=== PATIENT | male | born 1950 | race Caucasian/White ===

== ENCOUNTER 2018-11-10 07:07 | Inpatient (IN) | payer MEDICARE ==
[~2018-11-10] VITALS: Ht 177.8 cm; Wt 81.2 kg
[~2018-11-10 07:07] MED LIST changes: -GADOBUTROL 10 MMOL/10 ML PFS ONE; -OXYC-432 PO
[2018-11-10 07:42] VITALS: BP 129/84
[2018-11-10] MEDS ORDERED: BUPIVACAINE/PF-EPI 0.5% 1:200K ONE (07:54)
[2018-11-10] MEDS ORDERED: HYDROCORTISONE 100 MG INJ. ONE (07:54)
[2018-11-10] MEDS ORDERED: BACITRACIN OINT 500U/GM, 15 GM ONE (07:54)
[2018-11-10] MEDS ORDERED: CEFUROXIME 1.5 GM ONE (07:54)
[2018-11-10] MEDS ORDERED: THROMBIN 5,000 UNIT VIAL TP ONE (07:54)
[2018-11-10] MEDS ORDERED: BACITRACIN 50,000 UNIT ONE (07:54)
[2018-11-10] MEDS: LACTATED RINGERS 1,000 ML IV SCH ×2 (08:08→20:01)
[2018-11-10] MEDS ORDERED: ACETAMINOPHEN 500 MG TABLET ONE (09:31)
[2018-11-10] MEDS ORDERED: ACETAMINOPHEN 500 MG TABLET PO ONE (10:00)
[2018-11-10] MEDS ORDERED: FENTANYL PF 250 MCG/5ML ONE ×3 (10:22→15:15)
[2018-11-10] MEDS ORDERED: MIDAZOLAM 1 MG/ML, 2ML ONE (10:22)
[2018-11-10] MEDS ORDERED: LIDOCAINE 4%, 4 ML SYR/CANN TP ONE (12:46)
[2018-11-10] MEDS ORDERED: PROPOFOL 10 MG/ML, 20ML ONE ×2 (12:46)
[2018-11-10] MEDS ORDERED: DEXAMETHASONE 4 MG/ML, 5ML ONE (12:46)
[2018-11-10] MEDS ORDERED: ONDANSETRON 2MG/ML, 2ML ONE ×2 (12:46)
[2018-11-10] MEDS ORDERED: ROCURONIUM 10 MG/ML,10ML ONE (12:46)
[2018-11-10] MEDS ORDERED: SUCCINYLCHOLINE 20 MG/ML, 10ML ONE (12:46)
[2018-11-10] MEDS ORDERED: LABETALOL 20 MG/4 ML ONE (12:46)
[2018-11-10] MEDS ORDERED: morphine SULFATE 10 MG/ML, 1ML IV PRN (13:00)
[2018-11-10] MEDS ORDERED: ONDANSETRON 2MG/ML, 2ML IV PRN ×2 (13:00→14:00)
[2018-11-10] MEDS ORDERED: DEXAMETHASONE 4 MG/ML, 5ML IV SCH (13:00)
[2018-11-10] MEDS: CEFAZOLIN PMX 1GM/50ML 50 ML IVPB SCH ×2 (13:00→21:23)
[2018-11-10] MEDS ORDERED: LABETALOL 5MG/ML, 20ML IV PRN (14:00)
[2018-11-10] MEDS ORDERED: FENTANYL PF 100 MCG/2ML IV PRN (14:00)
[2018-11-10] MEDS ORDERED: PROMETHAZINE 25 MG/ML, 1ML IV PRN (14:00)
[2018-11-10] MEDS ORDERED: ALBUTEROL/IPRATROPIUM 2.5MG/0.5MG, 3 ML NPPB PRN (14:00)
[2018-11-10] MEDS ORDERED: OXYcodone 5 MG/5 ML ORAL.SOL UDC PO PRN (14:00)
[2018-11-10] MEDS ORDERED: HALOPERIDOL 5 MG/ML IV PRN (14:00)
[2018-11-10] MEDS ORDERED: DIAZEPAM 5 MG/ML, 2ML IVPush PRN (14:00)
[2018-11-10] MEDS ORDERED: ONDANSETRON ODT 8 MG PO PRN (14:00)
[2018-11-10] MEDS ORDERED: SUGAMMADEX 200 MG/2 ML IVPush ONE (16:12)
[2018-11-10] MEDS ORDERED: HYDROmorphone 2 MG/ML, 1ML ONE (17:36)
[2018-11-10] MEDS: HYDROmorphone 2 MG/ML, 1ML IVPush PRN ×3 (17:38→18:13)
[2018-11-10] MEDS ORDERED: hydrALAzine 20 MG/ML, 1ML ONE (18:00)
[2018-11-10] MEDS: hydrALAzine 20 MG/ML, 1ML IV PRN ×2 (18:01→18:21)
[2018-11-10] MEDS ORDERED: morphine SULFATE 10 MG/ML, 1ML ONE (18:05)
[2018-11-10] MEDS ORDERED: MORPHINE SULFATE 4 MG/ML, 1ML IVPush PRN (18:30)
[2018-11-10] MEDS ORDERED: LABETALOL 5MG/ML, 20ML IVPush PRN (19:00)
[2018-11-10] MEDS ORDERED: hydrALAzine 20 MG/ML, 1ML IV PRN (19:00)
[2018-11-10] MEDS ORDERED: ENALAPRILAT 1.25 MG/ML, 2ML IV PRN (19:00)
[2018-11-10] MEDS: DEXAMETHASONE 4 MG TABLET PO SCH (21:26)
[2018-11-11] MEDS: OXYcodone/APAP 5/325MG TABLET PO PRN ×3 (03:23→20:17)
[2018-11-11] MEDS: DEXAMETHASONE 4 MG TABLET PO SCH ×3 (04:33→20:11)
[2018-11-11 04:49] LABS: ANION GAP 10 mmol/L (5-15); CALCIUM 8.6 mg/dL (8.5-10.1); CHLORIDE 103 mmol/L (98-107); CREATININE 1.31 mg/dL (0.7-1.3)
[2018-11-11] MEDS: LISINOPRIL 20 MG TABLET PO SCH (09:03)
[2018-11-11] MEDS: MULTIVITAMINS/MINERALS TABLET PO SCH (09:03)
[2018-11-11] MEDS: CARVEDILOL 3.125 MG TABLET PO SCH ×2 (09:03→18:08)
[2018-11-11 10:19] LABS: BASOPHILS # (AUTO) 0.05 x10^3/uL (0-0.1); BASOPHILS % (AUTO) 1 % (0-1); EOSINOPHILS % (AUTO) 0 % (1-7); LYMPHOCYTES # (AUTO) 0.25 x10^3/uL (1-3.4); LYMPHOCYTES % (AUTO) 2 % (22-44); MD NO; MEAN CORPUSCULAR HEMOGLOBIN 31.5 pg (27.5-34.5); MEAN CORPUSCULAR HGB CONC 34.5 g/dL (33.2-36.2); MEAN CORPUSCULAR VOLUME 91.4 fL (81-97); MEAN PLATELET VOLUME 6.9 fL (7.4-10.4); MONOCYTES # (AUTO) 0.41 x10^3/uL (0.2-0.8); MONOCYTES % (AUTO) 4 % (2-9); NEUTROPHILS # (AUTO) 10.13 x10^3/uL (1.8-6.8); NEUTROPHILS % (AUTO) 93 % (42-75); PLATELET COUNT 142 x10^3/uL (130-400); RED BLOOD COUNT 3.84 x10^6/uL (4.38-5.82); RED CELL DISTRIBUTION WIDTH 15.2 % (9.4-14.8)
[2018-11-11 10:28] LABS: ALBUMIN 2.6 g/dL (3.4-5.0); ANION GAP 8 mmol/L (5-15); CALCIUM 8.9 mg/dL (8.5-10.1); CHLORIDE 101 mmol/L (98-107)
[2018-11-11 10:31] LABS: ALANINE AMINOTRANSFERASE 48 U/L (12-78); ALKALINE PHOSPHATASE 75 U/L (45-117); BILIRUBIN,TOTAL 0.6 mg/dL (0.2-1.0); CREATININE 1.42 mg/dL (0.7-1.3); TOTAL PROTEIN 6.3 g/dL (6.4-8.2)
[2018-11-11 11:30] VITALS: BP 110/75
[2018-11-11 13:30] VITALS: BP 111/78
[2018-11-11 18:06] VITALS: BP 101/67
[2018-11-11 19:21] VITALS: BP 109/71
[2018-11-12 00:32] VITALS: BP 121/78
[2018-11-12] MEDS: CARVEDILOL 3.125 MG TABLET PO SCH ×2 (04:36→17:17)
[2018-11-12] MEDS: DEXAMETHASONE 4 MG TABLET PO SCH ×3 (04:36→20:51)
[2018-11-12 07:00] VITALS: BP 159/92
[2018-11-12] MEDS: MULTIVITAMINS/MINERALS TABLET PO SCH (09:03)
[2018-11-12] MEDS: LISINOPRIL 20 MG TABLET PO SCH (09:04)
[2018-11-12] MEDS: OXYcodone/APAP 5/325MG TABLET PO PRN ×2 (13:52→20:54)
[2018-11-12 13:55] VITALS: BP 123/78
[2018-11-12 19:06] VITALS: BP 114/76
[2018-11-13 03:46] VITALS: BP 133/84
[2018-11-13] MEDS: OXYcodone/APAP 5/325MG TABLET PO PRN (03:55)
[2018-11-13] MEDS: DEXAMETHASONE 4 MG TABLET PO SCH (04:30)
[2018-11-13] MEDS: CARVEDILOL 3.125 MG TABLET PO SCH (04:32)
[2018-11-13 08:14] VITALS: BP 115/74
[2018-11-13] MEDS: MULTIVITAMINS/MINERALS TABLET PO SCH (08:14)
[2018-11-13] MEDS: LISINOPRIL 20 MG TABLET PO SCH (08:14)
[2018-11-13] MEDS ORDERED: OXYC-432 PO (08:46)
== END 2018-11-13 11:13 | disposition home health service (06) | DRG 26 ==
LOC: ORIP 07:07 → CCU 18:17 → 3NW 11-11 11:26
PROVIDERS: ADMIT Neurological Surgery; ATTEND Family Medicine
PROC: 00U20KZ Supplement Dura Mater with Nonautologous Tissue Substitute, Open Approach (ICD-10-PCS; 2018-11-10)
PROC: 03HY32Z Insertion of Monitoring Device into Upper Artery, Percutaneous Approach (ICD-10-PCS; 2018-11-10)
PROC: 00B70ZZ Excision of Cerebral Hemisphere, Open Approach (ICD-10-PCS; principal; 2018-11-10 10:00)
DX: C79.31 Secondary malignant neoplasm of brain (principal); C34.90 Malignant neoplasm of unspecified part of unspecified bronchus or lung; Z85.528 Personal history of other malignant neoplasm of kidney; J44.9 Chronic obstructive pulmonary disease, unspecified; F41.9 Anxiety disorder, unspecified; I97.3 Postprocedural hypertension; I10 Essential (primary) hypertension; Z85.820 Personal history of malignant melanoma of skin; Z85.841 Personal history of malignant neoplasm of brain; Z87.891 Personal history of nicotine dependence; Z90.5 Acquired absence of kidney
CPT/HCPCS: 36415; 80048; 80053; 85025; 86850; 86900; 87081; 88305; 88341; 88342; C1713; G0378; J0690; J0697; J1100; J1170; J2250; J2405; J2704; J3010; A4648; C1781; J0330; J0360; J1720; J2270; J3490; J7050; J7120

== ENCOUNTER → 2018-11-10 | Outpatient (CLI) | payer MEDICARE ==
[~2018-11-10] MED LIST: ASPI-496 PO; CYCL-259 PO; DEXA2TAB PO; DIAZ5TAB4 PO; GADOBUTROL 10 MMOL/10 ML PFS ONE; LISI-170 PO; LISI1TAB3 PO; MULT-516 PO; NAPR-850 PO; OXYC-302 PO; OXYC-432 PO
== END | disposition home or self-care (01) ==
LOC: RAD 07:01
PROVIDERS: ATTEND Neurological Surgery
DX: C79.31 Secondary malignant neoplasm of brain (principal); Z79.01 Long term (current) use of anticoagulants
CPT/HCPCS: 70552; A9585

== ENCOUNTER 2018-11-15 17:36 | Inpatient (IN) | payer MEDICARE ==
[~2018-11-15] VITALS: Ht 177.8 cm; Wt 79.0 kg
[~2018-11-15 17:36] MED LIST changes: +OXYC-432 PO
[2018-11-15 22:13] LABS: MICROSCOPIC INDICATED
[2018-11-15 22:14] LABS: CULTURE INDICATED? YES
[2018-11-15] MEDS: LACTATED RINGERS 1,000 ML IV SCH (22:15)
[2018-11-15] MEDS ORDERED: CAPTOPRIL 12.5 MG TABLET PO PRN (22:30)
[2018-11-15] MEDS ORDERED: ONDANSETRON 2MG/ML, 2ML IVPush PRN (22:30)
[2018-11-15] MEDS: PLEASE ENTER HEIGHT AND WEIGHT MC SCH (22:30)
[2018-11-15] MEDS ORDERED: ACETAMINOPHEN 325 MG TABLET PO PRN (22:30)
[2018-11-16 00:16] LABS: MD YES; MEAN CORPUSCULAR HEMOGLOBIN 30.6 pg (27.5-34.5); MEAN CORPUSCULAR HGB CONC 33.4 g/dL (33.2-36.2); MEAN CORPUSCULAR VOLUME 91.7 fL (81-97); MEAN PLATELET VOLUME 7.2 fL (7.4-10.4); PLATELET COUNT 176 x10^3/uL (130-400); RED BLOOD COUNT 4.17 x10^6/uL (4.38-5.82); RED CELL DISTRIBUTION WIDTH 15.1 % (9.4-14.8)
[2018-11-16 00:19] LABS: ANISOCYTOSIS 1+; BAND#(MANUAL) 0.21 x10^3/uL; BANDS%(MANUAL) 2 % (0-7); LYMPH#(MANUAL) 0.32 x10^3/uL (1-3.4); LYMPHS% (MANUAL) 3 % (22-44); METAMYELOCYTES# (MANUAL) 0.11 x10^3/uL (0-0); METAMYELOCYTES% (MANUAL) 1 % (0-1); MONOS#(MANUAL) 0.64 x10^3/uL (0.3-2.7); MONOS% (MANUAL) 6 % (2-9); MYELOCYTES# (MANUAL) 0.21 x10^3/uL (0-0); MYELOCYTES% (MANUAL) 2 % (0-0); POLYCHROMASIA 1+; SEG#(MANUAL) 9.12 x10^3/uL (1.8-6.8); SEGS% (MANUAL) 86 % (42-75)
[2018-11-16 00:20] LABS: <PLATELET ESTIMATE> ADEQUATE; <PLT MORPHOLOGY> NORMAL PLT MORPH
[2018-11-16 00:37] LABS: ANION GAP 10 mmol/L (5-15); CALCIUM 8.5 mg/dL (8.5-10.1); CHLORIDE 100 mmol/L (98-107); CREATININE 1.15 mg/dL (0.7-1.3)
[2018-11-16] MEDS: OXYcodone/APAP 10/325MG TABLET PO SCH ×4 (01:30→20:27)
[2018-11-16] MEDS: PLEASE ENTER HEIGHT AND WEIGHT MC SCH (03:27)
[2018-11-16 04:30] LABS: MEAN CORPUSCULAR HEMOGLOBIN 31.2 pg (27.5-34.5); MEAN CORPUSCULAR HGB CONC 34.1 g/dL (33.2-36.2); MEAN CORPUSCULAR VOLUME 91.4 fL (81-97); MEAN PLATELET VOLUME 6.5 fL (7.4-10.4); PLATELET COUNT 157 x10^3/uL (130-400); RED BLOOD COUNT 3.98 x10^6/uL (4.38-5.82); RED CELL DISTRIBUTION WIDTH 14.8 % (9.4-14.8)
[2018-11-16 04:39] LABS: ANION GAP 8 mmol/L (5-15); CALCIUM 8.6 mg/dL (8.5-10.1); CHLORIDE 100 mmol/L (98-107); CREATININE 1.22 mg/dL (0.7-1.3)
[2018-11-16 05:47] LABS: MD YES
[2018-11-16 05:49] LABS: BAND#(MANUAL) 0.18 x10^3/uL; BANDS%(MANUAL) 2 % (0-7); LYMPH#(MANUAL) 0.18 x10^3/uL (1-3.4); LYMPHS% (MANUAL) 2 % (22-44); MONOS#(MANUAL) 0.27 x10^3/uL (0.3-2.7); MONOS% (MANUAL) 3 % (2-9); MYELOCYTES# (MANUAL) 0.36 x10^3/uL (0-0); MYELOCYTES% (MANUAL) 4 % (0-0); SEG#(MANUAL) 7.92 x10^3/uL (1.8-6.8); SEGS% (MANUAL) 89 % (42-75)
[2018-11-16 05:50] LABS: <PLATELET ESTIMATE> ADEQUATE; <PLT MORPHOLOGY> NORMAL PLT MORPH; <RBC MORPHOLOGY> NORMAL
[2018-11-16] MEDS: DEXAMETHASONE 1 MG TABLET PO SCH (11:15)
[2018-11-16] MEDS: SENNA/DOCUSATE TABLET PO SCH (11:16)
[2018-11-16] MEDS: LISINOPRIL 20 MG TABLET PO SCH (11:16)
[2018-11-16] MEDS: LACTATED RINGERS 1,000 ML IV SCH (22:06)
[2018-11-17] MEDS: OXYcodone/APAP 10/325MG TABLET PO SCH ×4 (01:30→20:17)
[2018-11-17] MEDS: LISINOPRIL 20 MG TABLET PO SCH (08:38)
[2018-11-17] MEDS: DEXAMETHASONE 1 MG TABLET PO SCH (08:38)
[2018-11-17] MEDS: SENNA/DOCUSATE TABLET PO SCH (08:39)
[2018-11-17] MEDS ORDERED: DOXAZOSIN 2MG TABLET PO ONE (09:00)
[2018-11-17] MEDS: TAMSULOSIN 0.4 MG CAP.ER.24H PO SCH (10:22)
[2018-11-17 12:00] VITALS: BP 97/61
[2018-11-17] MEDS: SODIUM CHLORIDE 1 GM TABLET PO SCH ×2 (16:06→20:17)
[2018-11-17 18:33] VITALS: BP 90/52
[2018-11-18 00:07] VITALS: BP 94/60
[2018-11-18] MEDS: OXYcodone/APAP 10/325MG TABLET PO SCH ×4 (01:57→20:26)
[2018-11-18 06:05] LABS: ANION GAP 7 mmol/L (5-15); CHLORIDE 101 mmol/L (98-107); CREATININE 1.25 mg/dL (0.7-1.3)
[2018-11-18 06:21] LABS: MEAN CORPUSCULAR HGB CONC 34.7 g/dL (33.2-36.2); MEAN CORPUSCULAR VOLUME 92.2 fL (81-97); PLATELET COUNT 127 x10^3/uL (130-400); RED BLOOD COUNT 3.39 x10^6/uL (4.38-5.82); RED CELL DISTRIBUTION WIDTH 14.9 % (9.4-14.8)
[2018-11-18 06:43] VITALS: BP 101/67
[2018-11-18 07:22] LABS: MD YES
[2018-11-18 07:25] LABS: BAND#(MANUAL) 0.28 x10^3/uL; BANDS%(MANUAL) 4 % (0-7); LYMPH#(MANUAL) 0.28 x10^3/uL (1-3.4); LYMPHS% (MANUAL) 4 % (22-44); METAMYELOCYTES# (MANUAL) 0.07 x10^3/uL (0-0); METAMYELOCYTES% (MANUAL) 1 % (0-1); MONOS#(MANUAL) 0.28 x10^3/uL (0.3-2.7); MONOS% (MANUAL) 4 % (2-9)
[2018-11-18 07:26] LABS: MYELOCYTES# (MANUAL) 0.14 x10^3/uL (0-0); MYELOCYTES% (MANUAL) 2 % (0-0); SEG#(MANUAL) 6.04 x10^3/uL (1.8-6.8); SEGS% (MANUAL) 85 % (42-75)
[2018-11-18 07:27] LABS: <PLT MORPHOLOGY> NORMAL PLT MORPH; <RBC MORPHOLOGY> NORMAL
[2018-11-18 07:28] LABS: <PLATELET ESTIMATE> ADEQUATE
[2018-11-18] MEDS: TAMSULOSIN 0.4 MG CAP.ER.24H PO SCH (07:57)
[2018-11-18] MEDS: LISINOPRIL 20 MG TABLET PO SCH (07:57)
[2018-11-18] MEDS: DEXAMETHASONE 1 MG TABLET PO SCH (07:57)
[2018-11-18] MEDS: SENNA/DOCUSATE TABLET PO SCH (07:57)
[2018-11-18] MEDS: SODIUM CHLORIDE 1 GM TABLET PO SCH ×3 (07:58→20:26)
[2018-11-18 11:18] VITALS: BP 165/99
[2018-11-18] MEDS ORDERED: hydrALAzine 20 MG/ML, 1ML IV PRN (12:30)
[2018-11-18] MEDS ORDERED: SODIUM CHLORIDE 0.9%, 250ML IVBOLUS ONE (12:30)
[2018-11-18 14:22] VITALS: BP 97/58
[2018-11-18 18:57] VITALS: BP 114/71
[2018-11-19 01:27] VITALS: BP 116/72
[2018-11-19] MEDS: OXYcodone/APAP 10/325MG TABLET PO SCH ×3 (01:41→20:16)
[2018-11-19 07:00] VITALS: BP 124/71
[2018-11-19] MEDS: LISINOPRIL 20 MG TABLET PO SCH (09:00)
[2018-11-19] MEDS: SENNA/DOCUSATE TABLET PO SCH (09:00)
[2018-11-19] MEDS: TAMSULOSIN 0.4 MG CAP.ER.24H PO SCH (09:00)
[2018-11-19] MEDS: DEXAMETHASONE 1 MG TABLET PO SCH (09:00)
[2018-11-19] MEDS: SODIUM CHLORIDE 1 GM TABLET PO SCH ×3 (09:00→21:26)
[2018-11-19 12:15] LABS: ANION GAP 9 mmol/L (5-15); CALCIUM 8.6 mg/dL (8.5-10.1); CHLORIDE 98 mmol/L (98-107); CREATININE 1.22 mg/dL (0.7-1.3)
[2018-11-19] MEDS ORDERED: FENTANYL PF 100 MCG/2ML ONE ×3 (12:22→16:19)
[2018-11-19] MEDS ORDERED: BUPIVACAINE/PF-EPI 0.5% 1:200K ONE (12:25)
[2018-11-19] MEDS ORDERED: THROMBIN 5,000 UNIT VIAL TP ONE (12:25)
[2018-11-19] MEDS ORDERED: BACITRACIN 50,000 UNIT ONE (12:26)
[2018-11-19] MEDS ORDERED: NEOSTIGMINE 1 MG/ML, 10ML ONE (12:53)
[2018-11-19] MEDS ORDERED: ROCURONIUM 10MG/ML,5ML ONE (12:53)
[2018-11-19] MEDS ORDERED: PHENYLEPHRINE 10 MG/ML ONE (12:53)
[2018-11-19] MEDS ORDERED: PROPOFOL 10 MG/ML, 20ML ONE (12:53)
[2018-11-19] MEDS ORDERED: GLYCOPYRROLATE 0.2MG/1ML, 5ML ONE (12:53)
[2018-11-19] MEDS ORDERED: THROMBIN 20,000 UNIT VIAL TP ONE (13:07)
[2018-11-19] MEDS ORDERED: PROPOFOL 0 ML ONE (13:40)
[2018-11-19] MEDS ORDERED: ALBUTEROL/IPRATROPIUM 2.5MG/0.5MG, 3 ML NPPB PRN (14:30)
[2018-11-19] MEDS ORDERED: DIPHENHYDRAMINE 50 MG/ML, 1ML IVPush PRN (14:30)
[2018-11-19] MEDS ORDERED: ONDANSETRON 2MG/ML, 2ML IV PRN ×2 (14:30→17:00)
[2018-11-19] MEDS ORDERED: FENTANYL PF 100 MCG/2ML IV PRN (14:30)
[2018-11-19] MEDS ORDERED: LABETALOL 5MG/ML, 20ML IV PRN (14:30)
[2018-11-19] MEDS ORDERED: PROCHLORPERAZINE 5 MG/ML, 2ML IV PRN (14:30)
[2018-11-19] MEDS ORDERED: hydrALAzine 20 MG/ML, 1ML IV PRN (14:30)
[2018-11-19] MEDS ORDERED: PROMETHAZINE 25 MG/ML, 1ML IV PRN (14:30)
[2018-11-19] MEDS ORDERED: MEPERIDINE/PF 25MG/0.5ML IVPush PRN (14:30)
[2018-11-19] MEDS ORDERED: METOPROLOL 1 MG/ML, 5ML IV PRN (14:30)
[2018-11-19] MEDS ORDERED: FENTANYL PF 100 MCG/2ML IVPush PRN (16:30)
[2018-11-19] MEDS: NS + 20MEQ KCL 1,000 ML IV SCH (17:08)
[2018-11-19] MEDS: CEFAZOLIN PMX 1GM/50ML 50 ML IV SCH (17:09)
[2018-11-19] MEDS: MORPHINE SULFATE 4 MG/ML, 1ML IVPush PRN ×2 (19:11→23:46)
[2018-11-20] MEDS: OXYcodone/APAP 10/325MG TABLET PO SCH ×5 (01:30→20:27)
[2018-11-20] MEDS: CEFAZOLIN PMX 1GM/50ML 50 ML IV SCH ×3 (01:59→17:29)
[2018-11-20 05:28] LABS: BASOPHILS % (AUTO) 0 % (0-1); EOSINOPHILS # (AUTO) 0.02 x10^3/uL (0-0.4); EOSINOPHILS % (AUTO) 0 % (1-7); LYMPHOCYTES # (AUTO) 0.21 x10^3/uL (1-3.4); LYMPHOCYTES % (AUTO) 3 % (22-44); MD NO; MEAN CORPUSCULAR HEMOGLOBIN 30.8 pg (27.5-34.5); MEAN CORPUSCULAR HGB CONC 33.8 g/dL (33.2-36.2); MEAN PLATELET VOLUME 6.4 fL (7.4-10.4); MONOCYTES # (AUTO) 0.15 x10^3/uL (0.2-0.8); MONOCYTES % (AUTO) 2 % (2-9); NEUTROPHILS % (AUTO) 94 % (42-75); PLATELET COUNT 131 x10^3/uL (130-400); RED BLOOD COUNT 3.31 x10^6/uL (4.38-5.82); RED CELL DISTRIBUTION WIDTH 14.4 % (9.4-14.8)
[2018-11-20 05:32] LABS: ANION GAP 7 mmol/L (5-15); CALCIUM 8.3 mg/dL (8.5-10.1); CHLORIDE 100 mmol/L (98-107)
[2018-11-20 05:37] LABS: ALANINE AMINOTRANSFERASE 47 U/L (12-78); ALKALINE PHOSPHATASE 74 U/L (45-117); CREATININE 1.29 mg/dL (0.7-1.3); TOTAL PROTEIN 5.5 g/dL (6.4-8.2)
[2018-11-20] MEDS: NS + 20MEQ KCL 1,000 ML IV SCH (08:11)
[2018-11-20] MEDS: SODIUM CHLORIDE 1 GM TABLET PO SCH ×3 (08:27→20:28)
[2018-11-20] MEDS: TAMSULOSIN 0.4 MG CAP.ER.24H PO SCH (08:27)
[2018-11-20] MEDS: SENNA/DOCUSATE TABLET PO SCH (08:28)
[2018-11-20] MEDS: DEXAMETHASONE 1 MG TABLET PO SCH (08:28)
[2018-11-20] MEDS: LISINOPRIL 20 MG TABLET PO SCH (08:28)
[2018-11-21] MEDS: CEFAZOLIN PMX 1GM/50ML 50 ML IV SCH ×2 (02:51→10:08)
[2018-11-21] MEDS: OXYcodone/APAP 10/325MG TABLET PO SCH ×2 (02:52→08:16)
[2018-11-21 06:08] LABS: MEAN CORPUSCULAR HEMOGLOBIN 31.9 pg (27.5-34.5); MEAN PLATELET VOLUME 6.3 fL (7.4-10.4); PLATELET COUNT 134 x10^3/uL (130-400); RED BLOOD COUNT 3.12 x10^6/uL (4.38-5.82); RED CELL DISTRIBUTION WIDTH 14.7 % (9.4-14.8)
[2018-11-21 06:19] LABS: ANION GAP 6 mmol/L (5-15); CALCIUM 8.6 mg/dL (8.5-10.1); CHLORIDE 104 mmol/L (98-107); CREATININE 1.08 mg/dL (0.7-1.3)
[2018-11-21 06:28] LABS: MD YES
[2018-11-21 06:32] LABS: <PLATELET ESTIMATE> ADEQUATE; <PLT MORPHOLOGY> NORMAL PLT MORPH; BAND#(MANUAL) 0.41 x10^3/uL; BANDS%(MANUAL) 6 % (0-7); LYMPH#(MANUAL) 0.14 x10^3/uL (1-3.4); LYMPHS% (MANUAL) 2 % (22-44); METAMYELOCYTES# (MANUAL) 0.14 x10^3/uL (0-0); METAMYELOCYTES% (MANUAL) 2 % (0-1); MONOS#(MANUAL) 0.14 x10^3/uL (0.3-2.7); MONOS% (MANUAL) 2 % (2-9); MYELOCYTES# (MANUAL) 0.07 x10^3/uL (0-0); MYELOCYTES% (MANUAL) 1 % (0-0); SEG#(MANUAL) 5.92 x10^3/uL (1.8-6.8); SEGS% (MANUAL) 87 % (42-75)
[2018-11-21 06:33] LABS: <RBC MORPHOLOGY> NORMAL
[2018-11-21] MEDS: DEXAMETHASONE 1 MG TABLET PO SCH (08:16)
[2018-11-21] MEDS: SODIUM CHLORIDE 1 GM TABLET PO SCH ×3 (08:17→20:53)
[2018-11-21] MEDS: TAMSULOSIN 0.4 MG CAP.ER.24H PO SCH (08:17)
[2018-11-21] MEDS: SENNA/DOCUSATE TABLET PO SCH (08:17)
[2018-11-21] MEDS: LISINOPRIL 20 MG TABLET PO SCH (08:17)
[2018-11-21] MEDS ORDERED: MAGNESIUM HYDROXIDE 8%, 30ML UDC PO PRN (09:00)
[2018-11-21] MEDS ORDERED: BISACODYL 10 MG SUPP PR PRN (09:00)
[2018-11-21] MEDS: LACTULOSE 20 GM/30 ML UDC PO SCH ×2 (09:17→20:44)
[2018-11-21] MEDS: OXYcodone/APAP 5/325MG TABLET PO PRN (22:59)
[2018-11-22] MEDS: TAMSULOSIN 0.4 MG CAP.ER.24H PO SCH (08:29)
[2018-11-22] MEDS: LISINOPRIL 20 MG TABLET PO SCH (08:30)
[2018-11-22] MEDS: LACTULOSE 20 GM/30 ML UDC PO SCH ×2 (08:30→21:01)
[2018-11-22] MEDS ORDERED: MAGNESIUM CITRATE 300ML ORAL SOL PO ONE (08:30)
[2018-11-22] MEDS: SENNA/DOCUSATE TABLET PO SCH (08:31)
[2018-11-22] MEDS: SODIUM CHLORIDE 1 GM TABLET PO SCH ×3 (08:31→21:01)
[2018-11-22] MEDS: DEXAMETHASONE 1 MG TABLET PO SCH (09:00)
[2018-11-22] MEDS ORDERED: SODIUM CHLORIDE 0.9%, 500ML IVBOLUS ONE (12:30)
[2018-11-22] MEDS: HYDROCORTISONE 100 MG INJ. IVPush SCH ×2 (13:32→20:59)
[2018-11-22] MEDS ORDERED: methylPREDNISolone SOD SUCC 125 MG/2 ML ONE (13:36)
[2018-11-22 16:15] VITALS: BP 90/42
[2018-11-22 21:04] VITALS: BP 104/58
[2018-11-23 03:43] VITALS: BP 117/79
[2018-11-23 04:44] LABS: BASOPHILS % (AUTO) 0 % (0-1); EOSINOPHILS # (AUTO) 0.01 x10^3/uL (0-0.4); EOSINOPHILS % (AUTO) 0 % (1-7); LYMPHOCYTES # (AUTO) 0.18 x10^3/uL (1-3.4); LYMPHOCYTES % (AUTO) 3 % (22-44); MD NO; MEAN CORPUSCULAR HEMOGLOBIN 31.8 pg (27.5-34.5); MEAN CORPUSCULAR HGB CONC 34.9 g/dL (33.2-36.2); MEAN CORPUSCULAR VOLUME 91.2 fL (81-97); MEAN PLATELET VOLUME 6.3 fL (7.4-10.4); MONOCYTES # (AUTO) 0.18 x10^3/uL (0.2-0.8); MONOCYTES % (AUTO) 3 % (2-9); NEUTROPHILS # (AUTO) 5.25 x10^3/uL (1.8-6.8); NEUTROPHILS % (AUTO) 93 % (42-75); PLATELET COUNT 153 x10^3/uL (130-400); RED BLOOD COUNT 3.06 x10^6/uL (4.38-5.82); RED CELL DISTRIBUTION WIDTH 14.6 % (9.4-14.8)
[2018-11-23 04:58] LABS: ALANINE AMINOTRANSFERASE 46 U/L (12-78); ALBUMIN 2.1 g/dL (3.4-5.0); ANION GAP 7 mmol/L (5-15); CALCIUM 8.2 mg/dL (8.5-10.1); CHLORIDE 105 mmol/L (98-107); CREATININE 1.09 mg/dL (0.7-1.3)
[2018-11-23] MEDS: HYDROCORTISONE 100 MG INJ. IVPush SCH ×3 (04:59→21:22)
[2018-11-23 05:01] LABS: ALKALINE PHOSPHATASE 82 U/L (45-117); BILIRUBIN,TOTAL 0.5 mg/dL (0.2-1.0); TOTAL PROTEIN 5.8 g/dL (6.4-8.2)
[2018-11-23 07:27] VITALS: BP 117/70
[2018-11-23] MEDS: TAMSULOSIN 0.4 MG CAP.ER.24H PO SCH (08:44)
[2018-11-23] MEDS: SENNA/DOCUSATE TABLET PO SCH (08:44)
[2018-11-23] MEDS: SODIUM CHLORIDE 1 GM TABLET PO SCH ×3 (08:45→21:23)
[2018-11-23] MEDS: LACTULOSE 20 GM/30 ML UDC PO SCH ×2 (08:45→21:00)
[2018-11-23] MEDS: LISINOPRIL 20 MG TABLET PO SCH (08:45)
[2018-11-23 14:00] VITALS: BP 102/58
[2018-11-23 17:15] VITALS: BP 105/66
[2018-11-23 20:00] VITALS: BP 130/73
[2018-11-24] MEDS ORDERED: LIDOCAINE 2%, 6 ML JEL.PF.APP MM ONE (03:00)
[2018-11-24 04:57] LABS: ANION GAP 6 mmol/L (5-15); BASOPHILS % (AUTO) 0 % (0-1); CALCIUM 8.2 mg/dL (8.5-10.1); CHLORIDE 104 mmol/L (98-107); CREATININE 1.11 mg/dL (0.7-1.3); EOSINOPHILS # (AUTO) 0.01 x10^3/uL (0-0.4); EOSINOPHILS % (AUTO) 0 % (1-7); LYMPHOCYTES % (AUTO) 3 % (22-44); MD NO; MEAN CORPUSCULAR HEMOGLOBIN 31.5 pg (27.5-34.5); MEAN CORPUSCULAR HGB CONC 34.6 g/dL (33.2-36.2); MEAN CORPUSCULAR VOLUME 91.2 fL (81-97); MEAN PLATELET VOLUME 6.2 fL (7.4-10.4); MONOCYTES # (AUTO) 0.24 x10^3/uL (0.2-0.8); MONOCYTES % (AUTO) 4 % (2-9); NEUTROPHILS # (AUTO) 5.47 x10^3/uL (1.8-6.8); NEUTROPHILS % (AUTO) 93 % (42-75); PLATELET COUNT 168 x10^3/uL (130-400); RED BLOOD COUNT 3.06 x10^6/uL (4.38-5.82); RED CELL DISTRIBUTION WIDTH 14.7 % (9.4-14.8)
[2018-11-24 05:00] VITALS: BP 130/73
[2018-11-24] MEDS: HYDROCORTISONE 100 MG INJ. IVPush SCH ×3 (05:09→20:42)
[2018-11-24 07:35] VITALS: BP 124/78
[2018-11-24] MEDS: SENNA/DOCUSATE TABLET PO SCH (08:09)
[2018-11-24] MEDS: SODIUM CHLORIDE 1 GM TABLET PO SCH ×3 (08:09→20:42)
[2018-11-24] MEDS: TAMSULOSIN 0.4 MG CAP.ER.24H PO SCH (08:09)
[2018-11-24] MEDS: LACTULOSE 20 GM/30 ML UDC PO SCH ×2 (09:20→20:34)
[2018-11-24 11:40] VITALS: BP 127/76
[2018-11-24 19:59] VITALS: BP 108/72
[2018-11-24 22:48] LABS: BASOPHILS # (AUTO) 0.01 x10^3/uL (0-0.1); BASOPHILS % (AUTO) 0 % (0-1); EOSINOPHILS # (AUTO) 0.02 x10^3/uL (0-0.4); EOSINOPHILS % (AUTO) 0 % (1-7); LYMPHOCYTES # (AUTO) 0.22 x10^3/uL (1-3.4); LYMPHOCYTES % (AUTO) 4 % (22-44); MD NO; MEAN CORPUSCULAR HEMOGLOBIN 31.5 pg (27.5-34.5); MEAN CORPUSCULAR HGB CONC 34.1 g/dL (33.2-36.2); MEAN CORPUSCULAR VOLUME 92.3 fL (81-97); MEAN PLATELET VOLUME 6.2 fL (7.4-10.4); MONOCYTES # (AUTO) 0.25 x10^3/uL (0.2-0.8); MONOCYTES % (AUTO) 4 % (2-9); NEUTROPHILS % (AUTO) 92 % (42-75); PLATELET COUNT 153 x10^3/uL (130-400); RED BLOOD COUNT 3.08 x10^6/uL (4.38-5.82); RED CELL DISTRIBUTION WIDTH 14.6 % (9.4-14.8)
[2018-11-24 22:59] LABS: ANION GAP 6 mmol/L (5-15); CALCIUM 8.2 mg/dL (8.5-10.1); CHLORIDE 108 mmol/L (98-107); CREATININE 0.95 mg/dL (0.7-1.3)
[2018-11-25 01:22] VITALS: BP 139/86
[2018-11-25] MEDS: HYDROCORTISONE 100 MG INJ. IVPush SCH ×3 (04:24→21:14)
[2018-11-25 05:32] VITALS: BP 146/65
[2018-11-25 07:04] VITALS: BP 112/65
[2018-11-25] MEDS: LACTULOSE 20 GM/30 ML UDC PO SCH ×2 (09:00→21:14)
[2018-11-25] MEDS: SENNA/DOCUSATE TABLET PO SCH (09:24)
[2018-11-25] MEDS: TAMSULOSIN 0.4 MG CAP.ER.24H PO SCH (09:24)
[2018-11-25] MEDS: SODIUM CHLORIDE 1 GM TABLET PO SCH ×3 (09:24→21:14)
[2018-11-25 12:42] VITALS: BP 133/78
[2018-11-25 19:30] VITALS: BP 129/66
[2018-11-26 03:01] VITALS: BP 160/74
[2018-11-26] MEDS: HYDROCORTISONE 100 MG INJ. IVPush SCH ×2 (04:11→12:30)
[2018-11-26 06:32] VITALS: BP 137/71
[2018-11-26] MEDS: SODIUM CHLORIDE 1 GM TABLET PO SCH (11:23)
[2018-11-26] MEDS: LACTULOSE 20 GM/30 ML UDC PO SCH (11:23)
[2018-11-26] MEDS: SENNA/DOCUSATE TABLET PO SCH (11:23)
[2018-11-26] MEDS: TAMSULOSIN 0.4 MG CAP.ER.24H PO SCH (11:23)
[2018-11-26] MEDS: OXYcodone/APAP 5/325MG TABLET PO PRN (11:40)
== END 2018-11-26 14:19 | disposition hospice, inpatient (51) | DRG 907 ==
LOC: CCU 19:49 → 3NW 11-17 10:40 → CCU 11-19 14:52 → ICU 11-22 15:49 → 4WST 11-25 21:47
PROVIDERS: ADMIT Internal Medicine; ATTEND Internal Medicine
PROC: 0T9B70Z Drainage of Bladder with Drainage Device, Via Natural or Artificial Opening (ICD-10-PCS; 2018-11-15)
PROC: 00C70ZZ Extirpation of Matter from Cerebral Hemisphere, Open Approach (ICD-10-PCS; principal; 2018-11-19 12:30)
DX: G97.61 Postprocedural hematoma of a nervous system organ or structure following a nervous system procedure (principal); G93.5 Compression of brain; G93.41 Metabolic encephalopathy; J96.10 Chronic respiratory failure, unspecified whether with hypoxia or hypercapnia; C34.90 Malignant neoplasm of unspecified part of unspecified bronchus or lung; C79.31 Secondary malignant neoplasm of brain; E87.1 Hypo-osmolality and hyponatremia; Y83.8 Other surgical procedures as the cause of abnormal reaction of the patient, or of later complication, without mention of misadventure at the time of the procedure; D64.9 Anemia, unspecified; D69.6 Thrombocytopenia, unspecified; I10 Essential (primary) hypertension; J44.9 Chronic obstructive pulmonary disease, unspecified; N40.1 Benign prostatic hyperplasia with lower urinary tract symptoms; R29.6 Repeated falls; R33.8 Other retention of urine; Z51.5 Encounter for palliative care; Z66 Do not resuscitate; Z99.81 Dependence on supplemental oxygen; Z90.5 Acquired absence of kidney; W01.0XXA Fall on same level from slipping, tripping and stumbling without subsequent striking against object, initial encounter; Y93.89 Activity, other specified; Y92.89 Other specified places as the place of occurrence of the external cause; Y99.8 Other external cause status; Z85.528 Personal history of other malignant neoplasm of kidney
CPT/HCPCS: 36415; 70450; 80048; 80053; 81001; 82533; 83735; 84100; 85025; 87081; 87086; G0378; J0690; J2704; J2710; J3010; J3480; J3490; 92523-GN; C1781; G0515-GN; J1720; J2370; J7040; J7050; J7120